=== PATIENT | female | born 1990 | race Caucasian/White ===

== ENCOUNTER 2016-10-31 04:21 | Emergency (ER) | payer MEDICAID ==
--- NOTE | 2016-10-31 20:30 | ER ---
ADMIT: 10/31/2016 RM/LOC: ER [facility] MR#: [id number] [id number] MERYL ALAS [address] [place] [address] Emergency Room Report SEX: F AGE: 26 : 1990 DATE: 10/31/2016 The patient is a 26-year-old female, 4, para 1-2-1, last menstrual period August 29. Experienced pelvic cramping and vaginal bleeding yesterday with slight dysuria. Patient has completed 2 miscarriages at home without D and C. Exam remarkable for nontoxic, afebrile, minimally uncomfortable female with bright red blood per vagina. Cervix effaced, but not dilated. Ultrasound confirms intrauterine demise with in progress. O positive. WBC 13.8, normal hemoglobin. Quantitative 21,956. UA cath specimen, unremarkable. The patient given IV fluids, Zofran, Toradol, Dilaudid with improvement of pain. Hydrocodone 5/325 #20 as needed. Advised expectant . Patient understands. Follow up Dr. Estevez as needed. Konrad Davidson MD/ [employer] JOB #: [id number] CC: Konrad Davidson MD, Attending Physician Clementina Estevez MD, Family Physician Clementina Estevez MD
== END 2016-10-31 06:10 | disposition home or self-care (01) ==
LOC: ER 04:21
DX: O03.4 Incomplete spontaneous abortion without complication (principal)